=== PATIENT | male | born 1960 | race Caucasian/White ===

== ENCOUNTER → 2020-06-06 09:27 | Outpatient (BNVA) | payer OTHER, SELFPAY | PROVIDERS: Family Provider Family Medicine; PCP Family Medicine; Visit Provider Family Medicine | DX: E11.65 Type 2 diabetes mellitus with hyperglycemia (principal); I10 Essential (primary) hypertension | CPT/HCPCS: 80053; 80061; 83036; 83721 ==

== ENCOUNTER → 2021-01-08 09:39 | Outpatient (BNVA) | payer OTHER, SELFPAY | PROVIDERS: Family Provider Family Medicine; PCP Family Medicine; Referring Provider Family Medicine; Visit Provider Family Medicine | DX: E11.65 Type 2 diabetes mellitus with hyperglycemia (principal); I10 Essential (primary) hypertension | CPT/HCPCS: 80053; 83036 ==

== ENCOUNTER → 2021-08-16 08:50 | Outpatient (BNVA) | payer OTHER, SELFPAY | PROVIDERS: Family Provider Family Medicine; PCP Family Medicine; Visit Provider Family Medicine | DX: Z12.5 Encounter for screening for malignant neoplasm of prostate (principal); E11.65 Type 2 diabetes mellitus with hyperglycemia; N18.31 Chronic kidney disease, stage 3a | CPT/HCPCS: 80053; 80061; 83036; 83721; 84153; 85025 ==

== ENCOUNTER → 2022-01-10 09:26 | Outpatient (BNVA) | payer OTHER, SELFPAY | PROVIDERS: Family Provider Family Medicine; PCP Family Medicine; Visit Provider Family Medicine | DX: R25.2 Cramp and spasm (principal); E11.65 Type 2 diabetes mellitus with hyperglycemia; I10 Essential (primary) hypertension; M10.9 Gout, unspecified; F51.04 Psychophysiologic insomnia; E11.40 Type 2 diabetes mellitus with diabetic neuropathy, unspecified; M77.8 Other enthesopathies, not elsewhere classified; M65.351 Trigger finger, right little finger | CPT/HCPCS: 80053; 83036; 84550 ==

== ENCOUNTER → 2022-07-02 14:40 | Outpatient (BNVA) | payer OTHER, SELFPAY | PROVIDERS: Family Provider Family Medicine; PCP Family Medicine; Visit Provider Family Medicine | DX: E11.65 Type 2 diabetes mellitus with hyperglycemia (principal); E78.5 Hyperlipidemia, unspecified; L01.00 Impetigo, unspecified; E11.40 Type 2 diabetes mellitus with diabetic neuropathy, unspecified; F51.04 Psychophysiologic insomnia; M10.9 Gout, unspecified; L21.9 Seborrheic dermatitis, unspecified; R25.2 Cramp and spasm; K21.9 Gastro-esophageal reflux disease without esophagitis; N18.31 Chronic kidney disease, stage 3a; I12.9 Hypertensive chronic kidney disease with stage 1 through stage 4 chronic kidney disease, or unspecified chronic kidney disease; E11.22 Type 2 diabetes mellitus with diabetic chronic kidney disease; N18.30 Chronic kidney disease, stage 3 unspecified | CPT/HCPCS: 80053; 80061; 83036; 83721 ==

== ENCOUNTER → 2022-11-28 14:19 | Outpatient (BNVA) | payer OTHER, SELFPAY | PROVIDERS: Family Provider Family Medicine; PCP Family Medicine; Visit Provider Family Medicine | DX: M17.12 Unilateral primary osteoarthritis, left knee (principal) | CPT/HCPCS: 73562 ==

== ENCOUNTER → 2023-03-27 10:49 | Outpatient (BNVA) | payer OTHER, SELFPAY | PROVIDERS: Family Provider Family Medicine; PCP Family Medicine; Visit Provider Specialist | DX: G56.02 Carpal tunnel syndrome, left upper limb (principal); M18.12 Unilateral primary osteoarthritis of first carpometacarpal joint, left hand | CPT/HCPCS: 73110 ==

== ENCOUNTER → 2023-08-27 09:54 | Outpatient (BNVA) | payer OTHER, SELFPAY | PROVIDERS: Family Provider Family Medicine; PCP Nurse Practitioner; Referring Provider Nurse Practitioner; Visit Provider Nurse Practitioner | DX: E11.40 Type 2 diabetes mellitus with diabetic neuropathy, unspecified (principal); E78.5 Hyperlipidemia, unspecified; N18.9 Chronic kidney disease, unspecified; E11.9 Type 2 diabetes mellitus without complications; I10 Essential (primary) hypertension | CPT/HCPCS: 80053; 80061; 83036; 84443; 85025 ==

== ENCOUNTER → 2023-11-18 13:46 | Outpatient (BNVA) | payer OTHER, SELFPAY | PROVIDERS: Family Provider Family Medicine; PCP Nurse Practitioner; Visit Provider Specialist | DX: M65.341 Trigger finger, right ring finger; M65.331 Trigger finger, right middle finger | CPT/HCPCS: 73130 ==

== ENCOUNTER 2023-12-26 05:25 | Day surgery (SDC) | payer OTHER, SELFPAY ==
[2023-12-26] VITALS (9 sets, daily range): BP systolic 109–138; BP diastolic 69–91; PULSE 75–92; RESP 14–18; TEMP 36.1; O2SAT 92–98
[2023-12-26] MEDS: acetaminophen 1,000 MG/100 ML PIGGYBACK 400 MG IV (06:08)
[2023-12-26] MEDS: sodium chloride 0.9% 1,000 ML 30 ML IV (06:09)
[2023-12-26] MEDS: gabapentin 300 mg Capsule PO (06:10)
[2023-12-26] MEDS: CELEcoxib 200 mg Capsule 400 MG PO (06:10)
--- NOTE | 2023-12-26 06:48 | ANES.PREANE2 ---
Pre-Anesthetic Assessment Height/Weight: Height 1.78 m Weight 98.883 kg Temp Pulse Resp BP Pulse Ox O2 Del Method 97 F L 75 16 138/91 96 Room Air 12/26/23 06:00 12/26/23 06:00 12/26/23 06:00 12/26/23 06:00 12/26/23 06:00 12/26/23 06:00 Operation Date: 12/26/23 07:00 Proposed Procedures p Trigger Finger Release/Right hand, long finger and ring finger trigger release(Right) - Beatriz Lopez MD Last intake: Intake Last Liquid Date 12/25/23 Last Liquid Time 22:00 Last Solid Date 12/25/23 Last Solid Time 19:00 Social No tobacco Exam alert, oriented x 3, clear to auscultation bilaterally and regular rate & rhythm Airway Submandibular: within normal limits Cervical ROM: within normal limits Mallampati: Class I Pulmonary Sleep Apnea CV/HEM Hypertension None reported GI denies nighttime symptoms Metabolic Diabetes Mellitus Anesthetic Plan ASA status: 2 Anesthesia: General Medications/Allergies Home Medications Medication Instructions Recorded Confirmed Last Taken Type ondansetron HCl 4 mg tablet 4 mg PO DAILY PRN nausea and 08/21/21 12/25/23 Unknown Rx (Zofran) vomiting 30 days #30 tabs albuterol sulfate 90 mcg/actuation 2 puff inhalation Q6H PRN 09/08/21 12/25/23 Unknown Rx aerosol inhaler shortness of breath or wheezing #8.5 grams hydroxyzine HCl 50 mg tablet See Rx Instructions .Route 07/02/22 12/25/23 Unknown Rx .COMPLEX 90 days #90 tabs indomethacin 25 mg capsule See Rx Instructions .Route 07/02/22 12/25/23 Unknown Rx .COMPLEX #30 caps ketoconazole 2 % shampoo 1 applic topical Q14D #120 mL 07/02/22 12/25/23 Unknown Rx hydralazine 10 mg tablet See Rx Instructions .Route 08/08/22 12/26/23 12/25/23 Rx .COMPLEX #90 tabs mupirocin 2 % topical ointment 1 applic topical TID cellulitis 01/23/23 12/25/23 Unknown Rx #15 grams blood sugar diagnostic (OneTouch #100 ea 04/23/23 11/18/23 Unknown Rx Ultra Test strips) potassium chloride 8 mEq See Rx Instructions .Route 04/23/23 12/26/23 12/25/23 Rx capsule,extended release .COMPLEX #90 caps empagliflozin 25 mg tablet See Rx Instructions .Route 06/28/23 12/26/23 12/25/23 Rx (Jardiance) .COMPLEX #90 tabs olmesartan 40 See Rx Instructions .Route 06/28/23 12/26/23 12/25/23 Rx mg-hydrochlorothiazide 25 mg tablet .COMPLEX #90 tabs fenofibrate 54 mg tablet 54 mg PO DAILY #30 tabs 09/13/23 12/26/23 12/25/23 Rx glipizide 10 mg tablet, extended See Rx Instructions .Route 10/03/23 12/25/23 12/24/23 Rx release 24 hr .COMPLEX #180 tabs omeprazole 40 mg capsule,delayed 40 mg PO DAILY #90 caps 10/04/23 12/25/23 Unknown Rx release gabapentin 600 mg tablet See Rx Instructions .Route 11/05/23 12/26/23 12/25/23 Rx .COMPLEX #90 tabs Allergies Allergy/AdvReac Type Severity Reaction Status Date / Time cephalexin [From Keflex] Allergy ALGY-Rash Verified 12/26/23 05:52 Green Food Color Allergy ALGY-Hives Uncoded 09/14/23 09:37 peanuts Allergy ALGY-Redness Uncoded 09/14/23 09:37 of Skin Current Medications Generic Name Dose Route Start Last Admin Trade Name Freq PRN Reason Stop Dose Admin Sodium Chloride 1,000 mls @ 30 mls/hr 12/26/23 05:45 12/26/23 06:09 Sodium Chloride 0.9% IV 12/27/23 05:44 30 mls/hr .Q24H PRESLEY Administration PFSH Anesthesia Medical History CKD (chronic kidney disease) Chronic insomnia Restless leg syndrome Fatty liver Gout, arthritis Type 2 diabetes mellitus Cant tolerate metformin JN (obstructive sleep apnea) Hypertension Surgical History H/O shoulder surgery bilateral H/O arthroscopic knee surgery bilateral History of carpal tunnel surgery H/O rhinoplasty Social History Smoking and tobacco/nicotine status: former use of tobacco/nicotine Alcohol intake: former Substance/Drug Use: never Current occupational status: employed Data Anesthesia Cardiac Studies: No Data to Display
--- NOTE | 2023-12-26 07:00 | W.PM.OPSFHP ---
Same Day Surgery H&P Indication for Procedure/HPI DATE OF PROCEDURE: December 26, 2023 CHIEF COMPLAINT/INDICATIONFOR SURGICAL PROCEDURE: Trigger finger Right middle and ring fingers PREOP DIAGNOSIS: Trigger finger right ring and lone PLANNED PROCEDURE: Operation Date: 12/26/23 07:00 Proposed Procedures p Trigger Finger Release/Right hand, long finger and ring finger trigger release(Right) - Beatriz Lopez MD Medications/Allergies* Allergies/Adverse Reactions Allergy/AdvReac Type Severity Reaction Status Date / Time cephalexin [From Keflex] Allergy ALGY-Rash Verified 12/26/23 05:52 Green Food Color Allergy ALGY-Hives Uncoded 09/14/23 09:37 peanuts Allergy ALGY-Redness Uncoded 09/14/23 09:37 of Skin Current Medications: Generic Name Dose Route Start Last Admin Trade Name Freq PRN Reason Stop Dose Admin Sodium Chloride 1,000 mls @ 30 mls/hr 12/26/23 05:45 12/26/23 06:09 Sodium Chloride 0.9% IV 12/27/23 05:44 30 mls/hr .Q24H [facility] Administration Pertinent History/Comorbid Conditions* Medical History (Updated 11/22/23 @ 18:05 by Beatriz Lopez MD) CKD (chronic kidney disease) Chronic insomnia Restless leg syndrome Fatty liver Gout, arthritis Type 2 diabetes mellitus Cant tolerate metformin JN (obstructive sleep apnea) Hypertension Surgical History (Updated 11/17/19 @ 14:17 by Sara De Los Santos MD) H/O shoulder surgery bilateral H/O arthroscopic knee surgery bilateral History of carpal tunnel surgery H/O rhinoplasty Social History Smoking and tobacco/nicotine status: former use of tobacco/nicotine Alcohol intake: former Substance/Drug Use: never Current occupational status: employed Pertinent Exam Findings alert, oriented x 3, clear to auscultation bilaterally, regular rate & rhythm, operative site marked and procedure specific exam findings Related Problem List Diagnoses (1) Acquired trigger finger of right ring finger: (2) Acquired trigger finger of right middle finger: Recommendations Surgery/Procedure today Other Plans: None Coding Level of Care Code Acute Code for Chg Fwd Diagnoses Acquired trigger finger of right ring finger M65.341 Acquired trigger finger of right middle finger M65.331
[2023-12-26] MEDS: clindamycin 900 MG/50 ML PREMIX 100 MG IV (07:24)
[2023-12-26] MEDS: BUPivacaine 0.5% INJ 30 mL XX (07:34)
--- NOTE | 2023-12-26 08:57 | PM.OP ---
Operative Report Date of procedure: December 26, 2023 Pre-op diagnosis: Right long and ring finger triggering Post-op diagnosis: Right long and ring finger triggering Post-op findings: Significant fibrous tissue over the flexor tendons of the long and ring finger as well as a very tight A1 cesilia. Procedure done: Release right long and ring finger triggering Implants: None Specimens removed/disposition: None Surgeon: Beatriz Lopez MD [employer]: None Anesthesia: General (Per LMA, ASA 2) Estimated blood loss (mL): 2 Tourniquet time (min): 14 (At 250 mmHg) Urine output (mL): 0 (No Guerra) Complications: None Findings: Significant fibrous tissue about the palm over the long and ring finger flexor tendon slightly proximal to the A1 cesilia. Condition: stable Disposition: PACU (Then return to same-day surgery for discharge to home.) Brief History: This 63-year-old gentleman presents today for same-day surgery to release his right long and ring finger trigger fingers. He presented to the office stating his pain level was a 4 of 10. He could not take anti-inflammatories as he has kidney dysfunction, and he had his fingers injected in [place] without improvement. Further history indicates he had carpal tunnel surgery on this wrist in the late . Currently, he has difficulty with work secondary to triggering of these fingers. Risks and complications of surgery were discussed with the patient in the office. Consents were signed, and questions were answered. Procedure: Patient was brought to the operating theater. He was placed on the operating room table. General anesthesia per LMA, ASA 2, was administered without difficulty. Patient tolerated it well. Clindamycin 900 mg was administered prophylactically. A tourniquet was placed high on the arm and was elevated to 250 mmHg after the arm was exsanguinated. Tourniquet time was 14 minutes. Surgical pause was performed prior to commencement of the surgical procedure. At the time of the surgical pause we identified the site and side of surgery. We also identified the patient's identity and appropriate administration of IV antibiotics. Following the surgical pause, an incision was made along the distal palmar crease beneath the long and ring fingers. Dissection continued through the skin through the subcutaneous tissues using a scalpel. Blunt dissection was then utilized to spread soft tissues and allow access to the A1 cesilia. Each A1 cesilia was identified. It was then incised longitudinally and sharply using a knife. This was accomplished without difficulty and atraumatically. Once the A1 pulleys were released, tendons were brought up out of the wound and evaluated. There were no gross masses on the tendons, but there was evidence of irritation from the chronic triggering. Tendons were returned to normal position. We then irrigated the wound and subsequently closed it with 3-0 nylon with an interrupted mattress type suture. Following closure of the wound, the wound was injected with bupivacaine plain into the subcutaneous tissues as a local anesthetic. Sterile dressing was then placed consisting of OpSite, fluffed fluffs, soft roll, and an Otis wrap. The patient was returned to recovery in satisfactory condition. He will be discharged home to follow-up with me in the office. There were no complications and no specimens. Related Problem List Diagnoses (1) Acquired trigger finger of right ring finger: (2) Acquired trigger finger of right middle finger:
[2023-12-26] MEDS: HYDROcodone-acetaminophen 5-325 mg Tablet 1 TAB PO (09:02)
--- NOTE | 2023-12-26 13:53 | ANE.PACU2 ---
Inpatient post-anesthesia follow up: Vital signs: Temperature 97.0 F Pulse Rate 77 Respiratory Rate 18 Blood Pressure 121/75 Pulse Oximetry 98 Oxygen Delivery Me thod Room Air Oxygen Flow Rate 6 Fraction of Inspir ed Oxygen Hydration adequate: Yes Nausea and vomiting: No Mental status: Baseline Additional Comments: no apparent anesthetic complications noted
== END 2023-12-26 09:39 | disposition home or self-care (01) ==
PROVIDERS: Family Provider Family Medicine; PCP Nurse Practitioner; Visit Provider Specialist
PROC: (CPT 26055; principal; 2023-12-26 07:00)
DX: M65.331 Trigger finger, right middle finger (principal); M65.341 Trigger finger, right ring finger; G47.33 Obstructive sleep apnea (adult) (pediatric); E11.22 Type 2 diabetes mellitus with diabetic chronic kidney disease; I12.9 Hypertensive chronic kidney disease with stage 1 through stage 4 chronic kidney disease, or unspecified chronic kidney disease; N18.9 Chronic kidney disease, unspecified; Z87.891 Personal history of nicotine dependence
CPT/HCPCS: 26055 ×2; J0131; J0690; J2371; J2405; J2704; J3010; J3490; J7030

== ENCOUNTER → 2024-01-09 14:57 | Outpatient (BNVA) | payer OTHER, SELFPAY | PROVIDERS: Family Provider Family Medicine; PCP Nurse Practitioner; Visit Provider Nurse Practitioner | DX: E11.65 Type 2 diabetes mellitus with hyperglycemia (principal) | CPT/HCPCS: 80053; 83036 ==

== ENCOUNTER → 2024-04-15 15:39 | Outpatient (BNVA) | payer OTHER, SELFPAY | PROVIDERS: PCP Nurse Practitioner; Visit Provider Specialist | DX: G56.02 Carpal tunnel syndrome, left upper limb (principal) | CPT/HCPCS: 73130 ==

== ENCOUNTER → 2024-04-21 11:11 | Outpatient (BNVA) | payer OTHER, SELFPAY | PROVIDERS: PCP Nurse Practitioner; Referring Provider Nurse Practitioner; Visit Provider Nurse Practitioner | DX: N18.31 Chronic kidney disease, stage 3a (principal) | CPT/HCPCS: 80069; 82043; 82306; 82310; 83970; 85025 ==

== ENCOUNTER → 2024-06-04 14:32 | Outpatient (BNVA) | payer OTHER, SELFPAY | PROVIDERS: PCP Nurse Practitioner; Visit Provider Nurse Practitioner | DX: N18.31 Chronic kidney disease, stage 3a (principal) | CPT/HCPCS: 80048 ==

== ENCOUNTER → 2024-06-26 10:52 | Outpatient (BNVA) | payer OTHER, SELFPAY | PROVIDERS: PCP Nurse Practitioner; Visit Provider Nurse Practitioner | DX: R68.89 Other general symptoms and signs (principal); R11.0 Nausea | CPT/HCPCS: 80053; 81000; 85025; 87400; 87426 ==

== ENCOUNTER 2024-08-12 05:51 | Day surgery (SDC) | payer OTHER, SELFPAY ==
--- NOTE | 2024-08-11 16:24 | P.ANESASSM_ITS ---
Pre-Anesthetic Assessment Height/Weight: Height 5 ft 9 in Preop Diagnosis: Carpal tunnel syndrome Operation Date: 08/12/24 07:00 Proposed Procedures p Carpal Tunnel Release(Left) - Beatriz Lopez MD Was Beta Brett taken within 24 hours: N/A Was Clonidine taken within 24 hours: N/A Social No alcohol and No tobacco Quit smoking years ago Exam alert, oriented x 3, clear to auscultation bilaterally and regular rate & rhythm Airway Submandibular: within normal limits Cervical ROM: within normal limits Mallampati: Class II Dentition: false Comments: Comments: Upper dentures, lower implants that he states cannot be removed Anesthetic Plan ASA status: 3 Anesthesia: General Other: No prior issues with anesthesia NPO since yesterday History of hypertension on olmesartan?HCTZ, hydralazine GERD on omeprazole JN, no treatment Type 2 diabetes on glipizide Labs 06/26/2024 reviewed acceptable for procedure Plan for general anesthesia Medications/Allergies Home Medications Medication Instructions Recorded Confirmed Last Taken Type omeprazole 40 mg capsule,delayed 40 mg PO DAILY #90 caps 10/04/23 08/12/24 08/11/24 Rx release mupirocin 2 % topical ointment 1 applic topical BID #15 grams 01/09/24 08/12/24 08/11/24 Rx blood-glucose meter (True Metrix #1 ea 01/28/24 07/27/24 Unknown Rx Glucose Meter) True Metrix Glucose Test Strip #100 ea 02/07/24 07/27/24 Unknown Rx (blood sugar diagnostic) ketoconazole 2 % shampoo 1 applic topical Q14D #120 mL 06/04/24 08/12/24 Unknown Rx tramadol 50 mg tablet 50 mg PO DAILY PRN pain 5 days #5 06/26/24 08/12/24 Unknown Rx tabs allopurinol 100 mg tablet 100 mg PO DAILY 08/12/24 08/12/24 Unknown History empagliflozin 25 mg tablet 25 mg PO DAILY 08/12/24 08/12/24 08/11/24 History (Jardiance) gabapentin 600 mg tablet 600 mg PO BEDTIME 08/12/24 08/12/24 08/11/24 History glipizide 10 mg tablet, extended 10 mg PO QPM 08/12/24 08/12/24 08/11/24 History release 24 hr hydralazine 10 mg tablet 10 mg PO DIRECTED PRN Blood 08/12/24 08/12/24 U nknown History Pressure ketorolac 10 mg tablet 10 mg PO PRN PRN Pain 08/12/24 08/12/24 Unknown History meloxicam 15 mg tablet 15 mg PO PRN PRN Pain 08/12/24 08/12/24 Unknown History olmesartan 40 1 tab PO DAILY 08/12/24 08/12/24 08/11/24 History mg-hydrochlorothiazide 25 mg tablet ondansetron HCl 4 mg tablet 4 mg PO PRN PRN Nausea And Vomiting 08/12/24 08/12/24 Unknown History Allergies Allergy/AdvReac Type Severity Reaction Status Date / Time cephalexin [From Keflex] Allergy ALGY-Rash Verified 06/16/24 10:50 FD and C green no.3 Allergy ALGY-Hives Verified 07/21/24 08:17 peanut Allergy ALGY-Redness Verified 07/21/24 08:17 of Skin [facility] An[facility] Medical History CKD (chronic kidney disease) Chronic insomnia Restless leg syndrome Fatty liver Gout, arthritis Type 2 diabetes mellitus Cant tolerate metformin JN (obstructive sleep apnea) Hypertension Surgical History H/O shoulder surgery bilateral H/O arthroscopic knee surgery bilateral History of carpal tunnel surgery H/O rhinoplasty Social History Smoking and tobacco/nicotine status: former use of tobacco/nicotine Alcohol intake: former Substance/Drug Use: never Current occupational status: employed Data Anesthesia Cardiac Studies: No Data to Display
[2024-08-12] VITALS (10 sets, daily range): BP systolic 96–128; BP diastolic 58–82; PULSE 77–98; RESP 10–17; TEMP 35.9–36.5; O2SAT 93–97; BMI 28.0
[2024-08-12] MEDS: sodium chloride 0.9% 1,000 ML 30 ML IV (06:20)
[2024-08-12] MEDS: acetaminophen 1,000 MG/100 ML PIGGYBACK 400 MG IV (06:20)
[2024-08-12 06:29] LABS: Glucose Point of Care 126 mg/dL (70-110)
[2024-08-12] MEDS: CELEcoxib 200 mg Capsule 400 MG PO (06:49)
[2024-08-12] MEDS: gabapentin 300 mg Capsule PO (06:49)
--- NOTE | 2024-08-12 07:01 | W.PM.OPSUD ---
Surgery/Procedure H&P Update DATE OF PROCEDURE: August 12, 2024 DATE H&P PERFORMED: 07/27/24 H&P UPDATE INFORMATION: I have reviewed H&P completed within last 30 days, I have examined patient prior to procedure, No changes to prior documentation and H&P is in [facility] EMR on date indicated PREOP DIAGNOSIS: Carpal tunnel syndrome PLANNED PROCEDURE: Operation Date: 08/12/24 07:00 Proposed Procedures p Carpal Tunnel Release(Left) - Beatriz Lopez MD Related Problem List Diagnoses (1) Carpal tunnel syndrome, left:
[2024-08-12] MEDS: clindamycin 600 MG/50 ML PREMIX 100 MG IV (07:06)
[2024-08-12] MEDS: BUPivacaine 0.5% INJ 30 mL XX (07:33)
--- NOTE | 2024-08-12 07:56 | PM.OP ---
Operative Report Date of procedure: August 12, 2024 Pre-op diagnosis: Left carpal tunnel syndrome Post-op diagnosis: Left carpal tunnel syndrome Post-op findings: Significant compression across the carpal canal with thickening of the transverse carpal ligament Procedure done: Left carpal tunnel release Implants: None Specimens removed/disposition: None Surgeon: Beatriz Lopez MD Freight Trucker: None Anesthesia: General (Per LMA, ASA 3) Estimated blood loss (mL): 2 Tourniquet time (min): 22 (At 250 mmHg) IV fluids (mL): 600 Urine output (mL): 0 (No Guerra) Complications: None Findings: As described under findings Condition: stable Disposition: PACU (Then return to same-day surgery for discharge to home) Brief History: This 64-year-old gentleman presents today for left carpal tunnel release. The patient had significant symptoms and describe numbness and tingling in his left arm and hand. This kept him awake at night and at times would awaken him from sleep. After discussion in the office, the patient wished to proceed with left carpal tunnel release. This was accomplished for him uneventfully. Procedure: The patient was brought to the operating theater. General anesthesia was administered per LMA, ASA 3. The tourniquet was elevated to 250 mmHg for a total tourniquet time of 22 minutes. The patient was also given Ancef 2 g preoperatively. The arm was then prepped and draped with DuraPrep in usual fashion with the arm draped free. A surgical pause was performed. At the time, the surgical pause, we confirmed the site and side of surgery. We also confirmed the patient's identity, appropriate and timely administration of preoperative antibiotics and preoperative surgical markings. An incision was then made along the thenar crease. The incision crossed the wrist joint in a curvilinear fashion. Dissection continued through skin and soft tissues using a scalpel. The palmaris longus was identified along with the transverse carpal ligament. Each of these was released carefully to avoid injury to the median nerve. We were able to dissect gently into the carpal canal which was noted to be quite tight with significant compression across the median nerve. The nerve was visualized and was an hourglass shape. The canal was subsequently palpated to assure there was no bony encroachment upon the canal. There was a quite thickened fibrous tissue within the canal, and this was opened longitudinally as well. The canal was then palpated distally and proximally to assure that my small finger was passed easily without impingement. Finding this to be so, attention was directed to closure. The wound was irrigated with ropivacaine plain. It was then closed with 3-0 nylon in an interrupted mattress fashion. Sterile dressing was then placed consisting of Dermabond, OpSite, fluffed fluffs, sterile soft roll, and an Otis wrap. The tourniquet was released after 22 minutes. There were no complications. There were no specimens. The procedure was well tolerated. Plan is the patient will be discharged home. Related Problem List Diagnoses (1) Carpal tunnel syndrome, left:
--- NOTE | 2024-08-12 09:10 | ANE.PACU2 ---
Inpatient post-anesthesia follow up: Airway intact: Yes Vital signs: Temperature 97.5 F Pulse Rate 83 Respiratory Rate 17 Blood Pressure 128/75 Pulse Oximetry 95 Oxygen Delivery Me thod Room Air Oxygen Flow Rate 10 Fraction of Inspir ed Oxygen Hydration adequate: Yes Nausea and vomiting: No Pain level: 1 Mental status: Baseline
== END 2024-08-12 09:10 | disposition home or self-care (01) ==
PROVIDERS: PCP Nurse Practitioner; Visit Provider Specialist
PROC: (CPT 64721; principal; 2024-08-12 07:00)
DX: G56.02 Carpal tunnel syndrome, left upper limb (principal); Z87.891 Personal history of nicotine dependence; E11.22 Type 2 diabetes mellitus with diabetic chronic kidney disease; I12.9 Hypertensive chronic kidney disease with stage 1 through stage 4 chronic kidney disease, or unspecified chronic kidney disease; N18.9 Chronic kidney disease, unspecified; K21.9 Gastro-esophageal reflux disease without esophagitis; G47.33 Obstructive sleep apnea (adult) (pediatric)
CPT/HCPCS: 64721; 36416; 82962; J0131; J1100; J2371; J2405; J2704; J3010; J3490; J7030

== ENCOUNTER → 2024-09-25 14:26 | Outpatient (BNVA) | payer OTHER, SELFPAY | PROVIDERS: PCP Nurse Practitioner; Visit Provider Nurse Practitioner | DX: J02.9 Acute pharyngitis, unspecified (principal) | CPT/HCPCS: 87880 ==

== ENCOUNTER → 2024-12-03 13:39 | Outpatient (BNVA) | payer OTHER, SELFPAY | PROVIDERS: PCP Nurse Practitioner; Referring Provider Family Medicine; Visit Provider Nurse Practitioner | DX: N18.31 Chronic kidney disease, stage 3a (principal); Z79.899 Other long term (current) drug therapy | CPT/HCPCS: 80069; 82043; 82310; 83036; 83970; 85025 ==

== ENCOUNTER → 2025-03-17 15:06 | Outpatient (BNVA) | payer OTHER, SELFPAY | PROVIDERS: Visit Provider Family Medicine | DX: I12.9 Hypertensive chronic kidney disease with stage 1 through stage 4 chronic kidney disease, or unspecified chronic kidney disease (principal); E11.22 Type 2 diabetes mellitus with diabetic chronic kidney disease; N18.31 Chronic kidney disease, stage 3a; E11.65 Type 2 diabetes mellitus with hyperglycemia; N18.2 Chronic kidney disease, stage 2 (mild); E78.5 Hyperlipidemia, unspecified | CPT/HCPCS: 80053; 80061; 83036; 83721 ==

== ENCOUNTER → 2025-03-24 07:49 | Outpatient (BNVA) | payer OTHER, SELFPAY | PROVIDERS: PCP Family Medicine; Visit Provider Specialist | DX: M65.342 Trigger finger, left ring finger (principal); M65.332 Trigger finger, left middle finger; M65.352 Trigger finger, left little finger | CPT/HCPCS: 73130 ==